=== PATIENT | female | born 2000 | race Two or more races ===

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

== ENCOUNTER 2021-11-25 15:20 | Emergency (ER) | payer OTHER ==
[~2021-11-25] VITALS: Ht 170.2 cm; Wt 93.9 kg
[2021-11-25 15:21] VITALS: BP 141/90
[2021-11-25] MEDS ORDERED: DEPO150I12 IM (15:31)
[2021-11-25 16:48] LABS: BASO % 0.3 % (0.0-1.0); HEMATOCRIT 37.4 % (36.0-47.0); LYMPH # 1.4 10^3/uL (1.5-5.0); LYMPH % 12.7 % (24.0-44.0); MEAN CORPUSCULAR HGB CONC 34.8 g/dl (32.0-36.5); MEAN CORPUSCULAR VOLUME 86.4 fl (80.0-96.0); MONO # 0.5 10^3/uL (0.0-0.8); MONO % 4.4 % (2.0-8.0); NEUTROPHILS # 8.9 10^3/uL (1.5-8.5); NEUTROPHILS % 82.2 % (36.0-66.0); PLATELET COUNT, AUTOMATED 352 10^3/uL (150-450); RED BLOOD COUNT 4.33 10^6/uL (4.00-5.40); WHITE BLOOD COUNT 10.8 10^3/uL (4.0-10.0)
[2021-11-25 17:12] LABS: ALBUMIN 4.2 GM/DL (3.2-5.2); ALT/SGPT 31 U/L (12-78); BILIRUBIN,DIRECT 0.5 MG/DL (0.0-0.2); BLOOD UREA NITROGEN 12 MG/DL (7-18); CALCIUM LEVEL 9.9 MG/DL (8.5-10.1); CARBON DIOXIDE LEVEL 22 MEQ/L (21-32); CHLORIDE LEVEL 105 MEQ/L (98-107); CREATININE FOR GFR 0.59 MG/DL (0.55-1.30); GLOMERULAR FILTRATION RATE > 60.0 (>60); GLUCOSE, FASTING 108 MG/DL (70-100); LIPASE 71 U/L (73-393); POTASSIUM SERUM 3.5 MEQ/L (3.5-5.1); SODIUM LEVEL 138 MEQ/L (136-145)
[2021-11-25 17:16] LABS: HCG, SERUM QUALITATIVE NEGATIVE (NEGATIVE)
[2021-11-25] MEDS ORDERED: NS 1,000 ML IV ONE (19:30)
[2021-11-25] MEDS ORDERED: PANTOPRAZOLE 40MG VIAL IV ONE (19:30)
[2021-11-25] MEDS ORDERED: ONDANSETRON 4MG 2ML VIAL IV ONE (19:35)
[2021-11-25] MEDS ORDERED: ISOVUE-370 76% 100ML VIAL As Ordered ONE (19:42)
[2021-11-25] MEDS ORDERED: PANT40TA29 PO (21:01)
[2021-11-25] MEDS ORDERED: CARA1TAB6 PO (21:01)
[2021-11-25] MEDS ORDERED: ONDA4TAB6 PO (21:01)
== END 2021-11-25 21:17 | disposition home or self-care (01) ==
LOC: M ED 15:20
DX: K29.20 Alcoholic gastritis without bleeding (principal); Z79.3 Long term (current) use of hormonal contraceptives; Z77.098 Contact with and (suspected) exposure to other hazardous, chiefly nonmedicinal, chemicals
CPT/HCPCS: 74177; 80048; 80076; 83690; 84703; 85025; 96361; 96374; 96375; 99283; C9113; J2405; Q9967